=== PATIENT | male | born 1980 | race Hispanic/Latino ===

== ENCOUNTER 2017-06-21 03:17 | Observation (INO) | payer SELFPAY ==
[2017-06-21 03:21] VITALS: BMI 21.5
[2017-06-21 04:13] VITALS: RESP 16
[2017-06-21 04:43] LABS: BARBITURATES, UR NEGATIVE (NEGATIVE); BENZODIAZEPINES, UR NEGATIVE (NEGATIVE); OPIATES, UR NEGATIVE (NEGATIVE); PHENCYCLIDINE, UR NEGATIVE (NEGATIVE)
--- NOTE | 2017-06-21 04:58 | ED PDOC ---
HPI: Psych/Substance Abuse Time Seen by Provider: 06/21/17 03:20 Chief Complaint (Nursing): Alcohol Ingestion Chief Complaint (Provider): Alcohol Ingestion ED Caveat: Intoxicated, Uncooperative History Per: Patient History/Exam Limitations: intoxication Onset/Duration Of Symptoms: Hrs Current Symptoms Are (Timing): Still Present Modifying Factor(s): Alcohol, Other ((+)UNKNOWN DRUGS) Severity: Mild Associated Symptoms: Anger Additional Complaint(s): 37 y/o male patient presenting to the ED with Substance abuse and public intoxication. PT was combative and aggressive in the field as well as the ED and had to be restrained upon arrival due to being combative. Intoxication Caveat preventing past medical history information. Past Medical History Reviewed: Unable To Obtain Vital Signs: Last Vital Signs Temp Pulse 97 H 06/21/17 04:12 Resp 16 06/21/17 04:12 BP 107/57 L 06/21/17 04:12 Pulse Ox 98 06/21/17 04:12 - Family History Family History: States: No Known Family Hx - Allergies Allergies/Adverse Reactions: Allergies Allergy/AdvReac Type Severity Reaction Status Date / Time Unobtainable Allergy Verified 06/21/17 03:19 Review of Systems ROS Statement: Except As Marked, All Systems Reviewed And Found Negative Cardiovascular: Negative for: Chest Pain Physical Exam - Reviewed Nursing Documentation Reviewed: Yes Vital Signs Reviewed: Yes - Physical Exam Appears: Positive for: Non-toxic, No Acute Distress Head Exam: Positive for: ATRAUMATIC, NORMAL INSPECTION, NORMOCEPHALIC Skin: Positive for: Normal Color, Warm, Dry ENT: Positive for: Normal ENT Inspection Neck: Positive for: Normal Cardiovascular/Chest: Positive for: Regular Rate, Rhythm. Negative for: Murmur Respiratory: Positive for: Normal Breath Sounds. Negative for: Respiratory Distress Gastrointestinal/Abdominal: Positive for: Normal Exam, Soft. Negative for: Tenderness Extremity: Positive for: Normal ROM. Negative for: Tenderness Neurologic/Psych: Positive for: Alert, Oriented, Other ((+)Agitated but Cooperative). Negative for: Motor/Sensory Deficits - ECG O2 Sat by Pulse Oximetry: 98 (RA) Pulse Ox Interpretation: Normal Medical Decision Making Medical Decision Making: Time: 320 Initial impression: Substance abuse (Drugs) versus Alcohol Intoxication. Initial plan: --Alcohol Serum --Drug Screen --Haloperidol --Lorazepam --Admit --Rest --ED-Observation for Clinical Sobriety Scribe Attestation: Documented by Alessandra Fontenot, acting as a scribe for Corrie Maya MD. Scribe Attestation: All medical record entries made by the Scribe were at my direction and personally dictated by me. I have reviewed the chart and agree that the record accurately reflects my personal performance of the history, physical exam, medical decision making, and the department course for this patient. I have also personally directed, reviewed, and agree with the discharge instructions and disposition. ED OBSERVATION Date of observation admission: 06/21/17 Time of observation admission: 03:21 - Observation admission statement Patient is being placed in observation because:: SUBSTANCE ABUSE AND ALCOHOL INTOXICATION - Goals of Observation Goals of observation are:: CLINICAL SOBRIETY - Progress Note Progress Note: 06/21/17 04:51 PENDING CLINICAL SOBRIETY 06/21/17 06:21 PENDING CLINICAL SOBRIETY Disposition - Clinical Impression Clinical Impression: Alcohol intoxication, Substance abuse - Patient ED Disposition Is Patient to be Admitted: Transfer of Care Doctor Will See Patient In The: Office Counseled Patient/Family Regarding: Studies Performed, Diagnosis, Need For Followup - Disposition Disposition Time: 07:00 Condition: FAIR Patient Signed Over To: Nik Browne Handoff Comments: pending clinical sobriety.
[2017-06-21 07:02] VITALS: TEMP 98.9
--- NOTE | 2017-06-21 07:28 | ED PDOC ---
- ECG O2 Sat by Pulse Oximetry: 98 (RA) Pulse Ox Interpretation: Normal - Progress Re-evaluation Time: 08:34 Condition: Improved (awake alert no focal neuro deficits) Medical Decision Making Medical Decision Makin:00 Patient was signed out to me by Corrie Maya MD pending clinical sobriety, reevaluation and final disposition. Scribe Attestation: Documented by Jenna Lopez, acting as a scribe for Nik Browne MD. Provider Scribe Attestation: All medical record entries made by the Scribe were at my direction and personally dictated by me. I have reviewed the chart and agree that the record accurately reflects my personal performance of the history, physical exam, medical decision making, and the department course for this patient. I have also personally directed, reviewed, and agree with the discharge instructions and disposition. Disposition - Clinical Impression Clinical Impression: Alcohol intoxication, Substance abuse - POA Present On Arrival: None - Disposition Disposition: Routine/Home Disposition Time: 08:35 Condition: FAIR
[2017-06-21 07:44] VITALS: BP 112/63; PULSE 93
[2017-06-21 07:47] VITALS: O2SAT 98
== END 2017-06-21 09:00 | disposition home or self-care (01) ==
LOC: H.ER 03:17 → H.EROBSV 04:14
PROVIDERS: ADMIT Emergency Medicine; ATTEND Emergency Medicine
DX: F10.29 Alcohol dependence with unspecified alcohol-induced disorder (principal)
CPT/HCPCS: 82948; 96372; 99285; G0378; G0480; J1630; J2060

== ENCOUNTER 2017-08-15 02:27 | Emergency (ER) | payer SELFPAY ==
[2017-08-15 02:28] VITALS: BMI 21.5
[2017-08-15 02:38] VITALS: BP 140/88; PULSE 113; RESP 17; TEMP 98.9; O2SAT 100
--- NOTE | 2017-08-15 02:44 | ED PDOC ---
HPI: General Adult Time Seen by Provider: 08/15/17 02:36 Chief Complaint (Nursing): Medical Clearance Chief Complaint (Provider): Medical and psychological clearance prior to incarceration History Per: Patient History/Exam Limitations: no limitations Have you had recent travel within the past 21 days to any of the following countries: [place], [place], [place] or [place]?: No Severity: None Additional History Per: Patient Additional Complaint(s): The pt is a 37yo male, brought to the ED by [facility] for medical and psychiatric evaluation and clearance prior to incarceration. Pt currently denies any medical or psychiatric complaints. Pt admits to drinking alcohol earlier today but denies any drug use. He also denies any suicidal or homicidal ideation as well as auditory or visual hallucinations. Past Medical History Reviewed: Historical Data, Nursing Documentation, Vital Signs Vital Signs: Last Vital Signs Temp 98.9 F 08/15/17 02:33 Pulse 113 H 08/15/17 02:33 Resp 17 08/15/17 02:33 BP 140/88 08/15/17 02:33 Pulse Ox 100 08/15/17 02:48 - Medical History PMH: No Chronic Diseases - Surgical History Surgical History: No Surg Hx - Family History Family History: States: No Known Family Hx - Social History Current smoker - smoking cessation education provided: No Alcohol: Occasional Drugs: Denies - Allergies Allergies/Adverse Reactions: Allergies Allergy/AdvReac Type Severity Reaction Status Date / Time No Known Allergies Allergy Verified 08/15/17 02:38 Review of Systems ROS Statement: Except As Marked, All Systems Reviewed And Found Negative Psych: Positive for: Other (alcohol use). Negative for: Suicidal ideation Physical Exam - Reviewed Nursing Documentation Reviewed: Yes Vital Signs Reviewed: Yes - Physical Exam Appears: Positive for: Non-toxic, No Acute Distress Head Exam: Positive for: ATRAUMATIC, NORMAL INSPECTION, NORMOCEPHALIC Skin: Positive for: Normal Color Eye Exam: Positive for: Normal appearance ENT: Positive for: Other (2 scabbed wounds, one on right forehead and one on right upper cheek, 2cm in length from an injury sustained 1 week ago.) Neck: Positive for: Normal, Supple Cardiovascular/Chest: Positive for: Regular Rate, Rhythm Respiratory: Positive for: Normal Breath Sounds. Negative for: Accessory Muscle Use, Respiratory Distress Gastrointestinal/Abdominal: Positive for: Normal Exam Back: Positive for: Normal Inspection Extremity: Positive for: Normal ROM. Negative for: Deformity, Swelling Neurologic/Psych: Positive for: Alert, Oriented. Negative for: Motor/Sensory Deficits - ECG O2 Sat by Pulse Oximetry: 100 (RA) Pulse Ox Interpretation: Normal Medical Decision Making Medical Decision Making: Time: 0240 Impression: 37y/o male brought to ED by [facility] for medical and psychiatric evaluation prior to incarceration Plan: -- Crisis evaluation --Reassess Time: 5 Pt seen by crisis team and is psychiatrically cleared. Pt also medically cleared for incarceration. Final diagnosis: alcohol use Scribe Attestation: Documented by Guerda Perla acting as a scribe for Noman Fuentes MD Provider Scribe Attestation: All medical record entries made by the Scribe were at my direction and personally dictated by me. I have reviewed the chart and agree that the record accurately reflects my personal performance of the history, physical exam, medical decision making, and the department course for this patient. I have also personally directed, reviewed, and agree with the discharge instructions and disposition. Disposition - Clinical Impression Clinical Impression: Alcohol use - Disposition Disposition Time: 03:15 Condition: STABLE Additional Instructions: Patient is medically and psychiatrically stable for incarceration Forms: [employer] (Kos[place])
== END 2017-08-15 03:20 ==
LOC: H.ER 02:27
DX: F10.129 Alcohol abuse with intoxication, unspecified (principal)